=== PATIENT | female | born 1985 | race Caucasian/White ===

== ENCOUNTER 2016-12-18 16:40 | Emergency (ER) | payer MEDICAID ==
[~2016-12-18] VITALS: Ht 157.5 cm; Wt 130.5 kg
[~2016-12-18 16:40] MED LIST: FAMO1TAB PO; FERR27TA PO; PREN-46 PO; PREN1TAB49 PO
[2016-12-18 16:56] VITALS: Ht 157.5 cm; Wt 130.5 kg
[2016-12-18] MEDS ORDERED: SOD CHLORIDE 0.9% 1,000 ML IV STA (18:58)
[2016-12-18] MEDS ORDERED: ACETAMINOPHEN 325 MG TAB PO STA (18:58)
[2016-12-18 19:19] LABS: ADD UMIC NO; UR ASCORBIC ACID 40 mg/dL (NEGATIVE); UR BILIRUBIN (Dip) NEGATIVE (NEGATIVE); UR BLOOD (Dip) NEGATIVE (NEGATIVE); UR CLARITY CLEAR (CLEAR); UR COLOR YELLOW (YELLOW); UR GLUCOSE (Dip) NEGATIVE (NEGATIVE); UR KETONES (Dip) 1+ mg/dL (NEGATIVE); UR LEUKOCYTE ESTERASE (Dip) NEGATIVE Leu/ul (NEGATIVE); UR NITRITE (Dip) NEGATIVE (NEGATIVE); UR SPECIFIC GRAVITY (Dip) 1.013 (1.003-1.030); UR TOTAL PROTEIN (Dip) NEGATIVE (NEGATIVE); UR UROBILINOGEN (Dip) NEGATIVE (NEGATIVE)
[2016-12-18 19:42] LABS: BASOPHILS % 0.2 % (0.0-2.0); EOSINOPHILS # 0.1 10^3/ul (0.0-0.5); EOSINOPHILS % 0.7 % (0.0-7.0); HEMATOCRIT 32.8 % (37.0-47.0); LYMPHOCYTES # 1.8 10^3/ul (0.8-2.9); LYMPHOCYTES % 18.1 % (15.0-51.0); MEAN CORPUSCULAR HEMOGLOBIN 22.1 pg (29.0-33.0); MEAN CORPUSCULAR HGB CONC 30.5 g/dl (32.0-37.0); MEAN CORPUSCULAR VOLUME 72.6 fl (82.0-101.0); MEAN PLATELET VOLUME 10.4 fl (7.4-10.4); MONOCYTE # 0.4 10^3/ul (0.3-0.9); MONOCYTES % 4.3 % (0.0-11.0); NEUTROPHIL # 7.8 10^3/ul (1.6-7.5); NEUTROPHILS % 76.3 % (39.0-77.0); PLATELET COUNT 313 10^3/UL (140-415); RED BLOOD COUNT 4.52 10^6/ul (4.20-5.40); RED CELL DISTRIBUTION WIDTH 18.5 % (11.5-14.5); WHITE BLOOD COUNT 10.2 10^3/ul (4.8-10.8)
[2016-12-18 20:02] LABS: ALBUMIN 4.3 g/dl (3.3-4.9); ALBUMIN/GLOBULIN RATIO 1.1; BILIRUBIN,INDIRECT 0.2 mg/dl (0-1.1); BILIRUBIN,TOTAL 0.2 mg/dl (0.2-1.3); CALCIUM 9.5 mg/dl (8.4-10.2); CREATININE 0.49 mg/dl (0.44-1.00); POTASSIUM 4.1 mmol/L (3.5-5.1); TOTAL PROTEIN 8.2 g/dl (6.1-8.1)
--- NOTE | 2016-12-18 20:26 | RADRPT ---
PROCEDURE: FIRST TRIMESTER OBSTETRICAL ULTRASOUND: CLINICAL INDICATION: 31 years of age, female. Pelvic pain. COMPARISON: None TECHNIQUE: Real-time sonographic images of the pelvis were obtained transabdominally and transvagina lly utilizing grayscale, color, and Doppler imaging. FINDINGS: LMP October 24, 2016 EGA by dates: 7 weeks 6 days Uterus: Anteverted. Myometrium is normal and cervix is closed. Gestational sac: Intrauterine with intrauterine gestational sac, embryo and yolk sac. Mean sac diameter measures 2.32 cm , compatible with an average ultrasound age of 7 weeks 1 day . pole: [place]-rump length measures 1 cm , compatible with an average ultrasound age of 7 week s 1 day. Yolk sac: Present. Embryonic heart rate: 129 beats/min. Negative for evidence of subchorionic hemorrhage. Right ovary: Size: 3.7 x 2.9 x 3.4 cm. (Vol 19.2 mL) Appearance: Normal morphology. There is a thick-walled corpus luteum. Arterial and venous flow pre sent. Left ovary: Size: 2.7 x 1.2 x 2 cm. (Vol 3.3 mL) Appearance: Normal morphology. No masses. Arterial and venous flow present. Bladder: Visualized bladder is normal. Other: Small volume free pelvic fluid. IMPRESSION: Single live intrauterine with crown-rump length corresponding to 7 weeks 1 day is concorda nt with the expected gestational age by dates. Corpus luteum right ovary with small volume free pelvic fluid. RPTAT: HCTS Physician Sherice Date Time Electronically viewed and signed by Physician Sherice on 12/18/2016 20:26 CS/
[2016-12-18 21:11] VITALS: BP 128/60; PULSE 78; RESP 18; TEMP 98.7
--- NOTE | 2016-12-19 01:33 | ERD ---
ER Documentation Chief Complaint Date/Time DATE: 12/19/16 TIME: 01:29 Chief Complaint intermittent head pain with vision changes x 1 day HPI This patient is a 31-year-old female who is Ab1 LC 2, last menstrual cycle of 10-24-16 presenting to the emergency department with complaints of blurry vision, cold sweats, and headache also associated with nausea and dizziness ongoing intermittently for 1 day. Headache pain as a 7 out of 10 on the pain scale. The patient took Tylenol with no relief. The patient denies other symptoms currently. ROS All systems reviewed and are negative except as per history of present illness. Medications Home Meds Reported Medications Famotidine/Calcium Carb/Mag (Pepcid Complete Tablet Chew) 1 Tab.chew Tab.chew, 1 TAB.CHEW PO BID, #10 11/26/12 Vit #108/Iron/Fa ( ONE TABLET) 1 Each Tablet, 1 EACH PO DAILY, #1 11/25/12 Ferrous Sulfate (Iron) 1 Tab Tablet, 1 TAB PO DAILY 12/27/11 Vits W-Ca,Fe,Fa(<1MG) () 1 Tab Tablet, 1 TAB PO DAILY 12/27/11 Allergies Allergies: Coded Allergies: No Known Allergy (Unverified , 01/03/12) PMhx/Soc History of Surgery: Yes (cholecystectomy) Anesthesia Reaction: No Hx Neurological Disorder: No Hx Respiratory Disorders: No Hx Cardiac Disorders: No Hx Psychiatric Problems: No Hx Miscellaneous Medical Probl: No Hx Alcohol Use: No Hx Substance Use: No Hx Tobacco Use: No Smoking Status: Never smoker Physical Exam Vitals Vital Signs Date Time Temp Pulse Resp B/P Pulse Ox O2 Delivery O2 Flow Rate FiO2 12/18/16 21:11 98.7 78 18 128/60 100 Room Air 12/18/16 16:56 98.2 83 18 100/68 100 Physical Exam Const: Nontoxic, obese female resting in no apparent distress. Head: Atraumatic Eyes: Normal Conjunctiva ENT: Normal External Ears, Nose and Mouth. Neck: Full range of motion..~ No meningismus. Resp: Clear to auscultation bilaterally Cardio: Regular rate and rhythm, no murmurs Abd: Soft, non tender, non distended. Normal bowel sounds Skin: No petechiae or rashes Back: No midline or flank tenderness Ext: No cyanosis, or edema Neur: Awake and alert Psych: Normal Mood and Affect Result Diagram: 12/18/16192412/18/161924 Results 24 hrs Laboratory Tests Test 12/18/16 19:00 12/18/16 19:25 Urine Color YELLOW Urine Clarity CLEAR Urine pH 6.0 Urine Specific [place] 1.013 Urine Ketones 1+mg/dL Urine Nitrite NEGATIVEmg/dL Urine Bilirubin NEGATIVEmg/dL Urine Urobilinogen NEGATIVEmg/dL Urine Leukocyte Esterase NEGATIVELeu/ul Urine Hemoglobin NEGATIVEmg/dL Urine Glucose NEGATIVEmg/dL Urine Total Protein NEGATIVEmg/dl White Blood Count 10.210^3/ul Red Blood Count 4.5210^6/ul Hemoglobin 10.0g/dl Hematocrit 32.8% Mean Corpuscular Volume 72.6fl Mean Corpuscular Hemoglobin 22.1pg Mean Corpuscular Hemoglobin Concent 30.5g/dl Red Cell Distribution Width 18.5% Platelet Count 49503^3/UL Mean Platelet Volume 10.4fl Neutrophils % 76.3% Lymphocytes % 18.1% Monocytes % 4.3% Eosinophils % 0.7% Basophils % 0.2% Nucleated Red Blood Cells % 0.0/100WBC Neutrophils # 7.810^3/ul Lymphocytes # 1.810^3/ul Monocytes # 0.410^3/ul Eosinophils # 0.110^3/ul Basophils # 0.010^3/ul Nucleated Red Blood Cells # 0.010^3/ul Sodium Level 141mmol/L Potassium Level 4.1mmol/L Chloride Level 104mmol/L Carbon Dioxide Level 20mmol/L Anion Gap 21 Blood Urea Nitrogen 6mg/dl Creatinine 0.49mg/dl Glucose Level 103mg/dl Calcium Level 9.5mg/dl Total Bilirubin 0.2mg/dl Direct Bilirubin 0.00mg/dl Indirect Bilirubin 0.2mg/dl Aspartate Amino Transf (AST/SGOT) 17IU/L Alanine Aminotransferase (ALT/SGPT) 23IU/L Alkaline Phosphatase 86IU/L Total Protein 8.2g/dl Albumin 4.3g/dl Globulin 3.90g/dl Albumin/Globulin Ratio 1.10 Beta HCG, Quantitative 82522.0mIU/ml Current Medications Medications (Trade) Dose Ordered Sig/Leif Route PRN Reason Start Time Stop Time Status Last Admin Dose Admin Sodium Chloride (NS) 1,000 ml @ 1,000 mls/hr Q1H STAT IV 12/18/16 18:58 12/18/16 19:57 DC 12/18/16 19:30 Acetaminophen (Tylenol Tab) 650 mg ONCE STAT PO 12/18/16 18:58 12/18/16 19:02 DC 12/18/16 19:32 [place] [id number] Radiology Main Line: [phone] DIAGNOSTIC IMAGING REPORT Patient: THOR MAC : 1985 Age: 31 Sex: F MR #: [id number] DOS: 12/18/16 1858 Ordering MD: JAMIE MORALES PA-C Location: [facility] Room/Bed: PROCEDURE: FIRST TRIMESTER OBSTETRICAL ULTRASOUND: CLINICAL INDICATION: 31 years of age, female. Pelvic pain. COMPARISON: None TECHNIQUE: Real-time sonographic images of the pelvis were obtained transabdominally and transvaginally utilizing grayscale, color, and Doppler imaging. FINDINGS: LMP October 24, 2016 EGA by dates: 7 weeks 6 days Uterus: Anteverted. Myometrium is normal and cervix is closed. Gestational sac: Intrauterine with intrauterine gestational sac, embryo and yolk sac. Mean sac diameter measures 2.32 cm , compatible with an average ultrasound age of 7 weeks 1 day . pole: [place]-rump length measures 1 cm , compatible with an average ultrasound age of 7 weeks 1 day. Yolk sac: Present. Embryonic heart rate: 129 beats/min. Negative for evidence of subchorionic hemorrhage. Right ovary: Size: 3.7 x 2.9 x 3.4 cm. (Vol 19.2 mL) Appearance: Normal morphology. There is a thick-walled corpus luteum. Arterial and venous flow present. Left ovary: Size: 2.7 x 1.2 x 2 cm. (Vol 3.3 mL) Appearance: Normal morphology. No masses. Arterial and venous flow present. Bladder: Visualized bladder is normal. Other: Small volume free pelvic fluid. IMPRESSION: Single live intrauterine with crown-rump length corresponding to 7 weeks 1 day is concordant with the expected gestational age by dates. Corpus luteum right ovary with small volume free pelvic fluid. RPTAT: HCTS Physician Sherice Date Time Electronically viewed and signed by Jacobo Lao Physician on 12/18/2016 20: 26 CS/ CC: JAMIE MORALES PA-C Procedures/[facility] EMERGENCY DEPARTMENT COURSE / MEDICAL DECISION MAKING: This is a 31-year-old female who comes to the emergency room secondary to complaints of headache, dizziness, blurry vision, nausea. The patient was given IV fluids and p.o. Tylenol in the department. On re- evaluation, the patient was feeling improved. Lab results reviewed. CBC: Slightly anemic but not significant Chemistry: Within normal limits UA: Not concerning for urinary tract infection. Radiology: [place] [id number] Radiology Main Line: [phone] DIAGNOSTIC IMAGING REPORT Patient: THOR MAC : 1985 Age: 31 Sex: F MR #: [id number] DOS: 12/18/16 1858 Ordering MD: JAMIE MORALES PA-C Location: E Room/Bed: PROCEDURE: FIRST TRIMESTER OBSTETRICAL ULTRASOUND: CLINICAL INDICATION: 31 years of age, female. Pelvic pain. COMPARISON: None TECHNIQUE: Real-time sonographic images of the pelvis were obtained transabdominally and transvaginally utilizing grayscale, color, and Doppler imaging. FINDINGS: LMP October 24, 2016 EGA by dates: 7 weeks 6 days Uterus: Anteverted. Myometrium is normal and cervix is closed. Gestational sac: Intrauterine with intrauterine gestational sac, embryo and yolk sac. Mean sac diameter measures 2.32 cm , compatible with an average ultrasound age of 7 weeks 1 day . pole: [place]-rump length measures 1 cm , compatible with an average ultrasound age of 7 weeks 1 day. Yolk sac: Present. Embryonic heart rate: 129 beats/min. Negative for evidence of subchorionic hemorrhage. Right ovary: Size: 3.7 x 2.9 x 3.4 cm. (Vol 19.2 mL) Appearance: Normal morphology. There is a thick-walled corpus luteum. Arterial and venous flow present. Left ovary: Size: 2.7 x 1.2 x 2 cm. (Vol 3.3 mL) Appearance: Normal morphology. No masses. Arterial and venous flow present. Bladder: Visualized bladder is normal. Other: Small volume free pelvic fluid. IMPRESSION: Single live intrauterine with crown-rump length corresponding to 7 weeks 1 day is concordant with the expected gestational age by dates. Corpus luteum right ovary with small volume free pelvic fluid. RPTAT: HCTS Physician Sherice Date Time Electronically viewed and signed by Jacobo Lao Physician on 12/18/2016 20: 26 CS/ CC: JAMIE MORALES PA-C The primary diagnosis is dizziness. Secondary diagnosis is headache. Other diagnosis includes and not yet delivered. I have low suspicion for acute abdomen, TIA, CVA, vertigo, sepsis, or other emergent conditions. Discharge: I have discussed the lab results and diagnostic findings with the patient and answered any questions or concerns. The patient was advised to continue taking her vitamin with iron To address her mild anemia. The patient was advised to followup with their PMD in 1-2 days and to return to the Emergency Department if there are any new or worsening symptoms. The patient understood and agreed with the diagnosis, treatment and plan. The patient is stable for discharge at this time. Departure Diagnosis: Primary Impression: Dizziness Additional Impressions: Headache and not yet delivered Condition: Fair Patient Instructions: Self-Care for Headaches, Dizziness, Unk Cause Referrals: [facility] Usted se murrieta hecho un examen mdico de control que le indica que no est en ken[place] condicin que requiera tratamiento urgente en el Departamento de Emergencia. Un estudio ms profundo y el tratamiento de stein condicin pueden esperar sin ningn riesgo hasta que usted sea atendida/o en el consultorio de stein mdico o ken[place] cl gurdeep. Es responsabilidad suya arreglar kenya tamra para el seguimiento del dilip. MANEJO DE CONDICIONES NO URGENTES EN EL FUTURO 1) Si usted tiene un mdico de atencin primaria: Usted debera llamar a stein mdico de atencin primaria antes de venir al departamento de emergencia. Despus de las horas de consultorio, stein doctor o stein asociado/a est disponible por telfono. El mdico o enfermero de clint en el servicio telefnico puede asesorarle por marisabel medio para atender el problema, o dilip contrario se puede programar kenya tamra. 2) Si usted no tiene un mdico de atencin primaria: Llame al mdico o clnica de referencia que aparece abajo jj las horas de consultorio para hacer kenya tamra para que le vean. CLINICAS: [facility] [phone] [facility] [phone] [facility]. [facility] [phone] [facility] [place] [address] [phone] [facility] [place] [address] [phone] [facility]. [phone] Additional Instructions: Follow up with your PCP within the next 1-3 days for a repeat evaluation. If you require a referral to a specialist, your Primary Care Provider may be able to provide this for you. In most patient cases, a referral is not required. If you have further questions regarding this matter, please ask your Primary Care Provider. Return the the emergency department immediately if symptoms worsen or change. If you have any questions regarding medications, ask your pharmacist or us before you leave. If any adverse reactions, occur while taking your medications, discontinue the treatment and return to the emergency department immediately. If any new or worsening symptoms, uncontrolled fevers, or other unexplained symptoms occur, return to the emergency department immediately. Take your medications as directed, and complete the entire course of treatment. JAMIE MORALES PA-C Dec 19, 2016 01:33
== END 2016-12-18 21:12 | disposition home or self-care (01) ==
LOC: FTE 16:40
DX: O99.89 Other specified diseases and conditions complicating pregnancy, childbirth and the puerperium (principal); R42 Dizziness and giddiness; R51 Headache; R10.2 Pelvic and perineal pain; Z3A.01 Less than 8 weeks gestation of pregnancy
CPT/HCPCS: 36415; 76801; 76817; 80053; 81003; 84702; 85025; 86900; 86901; J7030; Z7502; Z7610

== ENCOUNTER 2017-05-30 11:03 | Outpatient (CLI) | END 2017-05-30 14:00 | disposition home or self-care (01) ==

== ENCOUNTER 2017-06-10 10:27 | Outpatient (CLI) | END 2017-06-10 16:10 | disposition home or self-care (01) ==

== ENCOUNTER 2017-06-28 16:47 | Outpatient (CLI) | END 2017-06-28 20:57 | disposition home or self-care (01) ==

== ENCOUNTER 2017-07-26 19:58 | Inpatient (IN) | END 2017-07-30 14:39 | disposition home or self-care (01) | DRG 775 ==